=== PATIENT | female | born 1965 | race Caucasian/White ===

== ENCOUNTER 2017-09-01 08:38 | Emergency (ER) | payer OTHER, SELFPAY ==
[2017-09-01 09:22] LABS: #Basophils 0.1 thou/uL (0.0-0.2); #Lymphocytes 3.1 thou/uL (1.20-3.40); #Monocytes 0.3 thou/uL (0.11-0.59); #Neutrophils 5.8 thou/uL (1.40-6.50); %Eosinophils 0.4 % (0.0-10.0); %Lymphocytes 33.6 % (21.0-51.0); %Monocytes 2.7 % (0.0-10.0); %Neutrophils 62.3 % (42.0-75.0); Hemoglobin 12.9 g/dL (12.0-16.0); Mean Corpuscular HGB CONC 31.9 g/dL (32.0-36.0); Mean Corpuscular Hemoglobin 28.3 pg (27.0-31.0); Mean Corpuscular Volume 88.9 fl (81.0-99.0); Mean Platelet Volume 7.4 fL (7.4-10.4); Platelet Count 310 thou/uL (130-400); RBC Distribution Width 12.9 % (11.5-14.5); Red Blood Cell (RBC) Count 4.55 mill/uL (4.20-5.40); White Blood Cell (WBC) Count 9.2 thou/uL (4.8-10.8)
[2017-09-01 09:23] LABS: Alcohol Less than 10 mg/dL (Less than 10); Salicylate Less than 8.0 mg/dL (15.0-30.0)
[2017-09-01 09:26] LABS: ALT (SGPT) 28 U/L (8-55); AST (SGOT) 32 U/L (5-34); Albumin 4.2 g/dL (3.5-5.0); Alkaline Phosphatase 83 U/L (40-150); Anion Gap 15 mmol/L (10-20); BUN (Urea Nitrogen) 11 mg/dL (9.8-20.1); Bilirubin, Total 0.5 mg/dL (0.2-1.2); Calc. Creatinine Clearance 0 mL/min (70-130); Calcium 9.3 mg/dL (7.8-10.44); Carbon Dioxide 24 mmol/L (22-29); Chloride 108 mmol/L (98-107); Estimated GFR-MDRD 86; Globulin 3.7 g/dL (2.4-3.5); Glucose 120 mg/dL (70-105); Potassium 3.3 mmol/L (3.5-5.1); Protein, Total 7.9 g/dL (6.0-8.3); Sodium 144 mmol/L (136-145)
[2017-09-01 09:27] LABS: Troponin I Less than 0.010 ng/mL (< 0.028)
[2017-09-01] MEDS ORDERED: Dexamethasone 4 mg/ml Vial ONE (09:27)
--- NOTE | 2017-09-01 19:36 | CT ---
CT OF THE BRAIN WITHOUT CONTRAST 09/01/17 There is a large mass in the left posterior frontotemporal region measuring at least 4 cm in size. Th ere is intense edema around the mass that is causing significant compression and herniation of the la teral ventricles from left to right. There is essentially a subfalcine herniation of portions of the left lateral ventricle. No bleeding is seen within this area. There is no dilation of the lateral, th ird or fourth ventricles. The right cerebral hemisphere was unremarkable. The visible paranasal sinus es are clear. IMPRESSION: Large mass situated around the Sylvian fissure on the left side in the left posterior frontotemporal region with large amounts of surrounding edema. This is causing severe compression and displacement o f the lateral ventricles from left to right. Primary brain tumor such as a glioblastoma would be a si gnificant possibility. Metastatic disease also belongs in the differential. Findings discussed with Dr. Nair at 0921 on 09/01/17. POS: HOME
== END 2017-09-01 10:11 | disposition short-term general hospital (02) ==
LOC: BURERS 08:38
DX: G93.9 Disorder of brain, unspecified (principal); E11.9 Type 2 diabetes mellitus without complications; G40.909 Epilepsy, unspecified, not intractable, without status epilepticus; Z87.891 Personal history of nicotine dependence; Z79.899 Other long term (current) drug therapy
CPT/HCPCS: 36416; 70450; 80053; 80307; 82553; 83605; 84443; 84484; 85025; 85652; 93005; 96374; J1100